=== PATIENT | male | born 1945 | race Caucasian/White ===

== ENCOUNTER → 2016-09-27 | Outpatient (CLI) | payer OTHER ==
--- NOTE | 2016-09-27 14:10 | DI ---
LEFT THUMB EXAM, 09/27/2016 10:19 AM: Clinical History: Injury. Previous Exam: None at this facility. 3 views are submitted. There is a comminuted nondisplaced fracture of the distal tuft of the thumb. T he remainder of the exam is normal. Reading: Comminuted fracture of the distal tuft of the thumb.
== END ==
LOC: MOB RAD 10:24
PROVIDERS: ATTEND Physician Assistant Medical
DX: M79.645 Pain in left finger(s) (principal); S62.525A Nondisplaced fracture of distal phalanx of left thumb, initial encounter for closed fracture; W27.8XXA Contact with other nonpowered hand tool, initial encounter
CPT/HCPCS: 73140; 99202